=== PATIENT | female | born 1995 | race Caucasian/White ===

== ENCOUNTER 2016-04-26 12:45 | Emergency (ER) | payer OTHER ==
[2016-04-26 12:55] VITALS: BP 133/58
[2016-04-26] MEDS ORDERED: methylPREDNISolone SOD 40 MG* 1 ML VIAL IV ONE (12:56)
[2016-04-26] MEDS ORDERED: Ranitidine INJ(*) 25 MG/ML 2 ML VIAL IVPB ONE (12:59)
[2016-04-26] MEDS ORDERED: methylPREDNISolone 125 MG* 2 ML VIAL IV ONE (13:02)
[2016-04-26] MEDS ORDERED: Famotidine TAB* 20 MG PO ONE (13:13)
[2016-04-26] MEDS ORDERED: predniSONE TAB* 20 MG PO ONE (13:13)
--- NOTE | 2016-04-26 13:18 | ED ---
Allergic Reaction/Systemic - HPI Summary HPI Summary: 20F presents with anaphylaxis reaction after eating nuts this morning which she has a known reaction to. She says she felt her tongue swell and her throat became swollen. She took two Benadryl and her friend gave her an epipen. Symptoms resolved with the epipen. - History of Current Complaint Chief Complaint: EDAllergicReaction Time Seen by Provider: 04/26/16 12:55 Pain Intensity: 0 - Allergies/Home Medications Allergies/Adverse Reactions: Allergies Allergy/AdvReac Type Severity Reaction Status Date / Time No Known Allergies Allergy Verified 05/07/15 12:42 PMH/Surg Hx/FS Hx/Imm Hx Endocrine/Hematology History: Denies: Hx Diabetes Cardiovascular History: Denies: Hx Hypertension, Hx Pacemaker/ICD Respiratory History: Denies: Hx Asthma History: Denies: Hx Renal Disease Musculoskeletal History: Denies: Hx Osteoporosis Sensory History: Denies: Hx Hearing Aid Psychiatric History: Denies: Hx Panic Disorder - Surgical History Surgery Procedure, Year, and Place: T&A-LEFT FOOT SURGERY 10/2014 Infectious Disease History: No Infectious Disease History: Denies: Traveled Outside the [place] in Last 30 Days - Family History Known Family History: Negative: Cardiac Disease - Social History Alcohol Use: Occasionally Substance Use Type: Reports: None Smoking Status (MU): Never Smoked Tobacco Review of Systems Negative: Fever Positive: Sore Throat - resolved Negative: Chest Pain Positive: Shortness Of Breath - resolved All Other Systems Reviewed And Are Negative: Yes Physical Exam Triage Information Reviewed: Yes Vital Signs On Initial Exam: Initial Vitals Temp Pulse Resp BP Pulse Ox 98.2 F 101 19 133/58 100 04/26/16 12:50 04/26/16 12:50 04/26/16 12:50 04/26/16 12:50 04/26/16 12:50 Vital Signs Reviewed: Yes Appearance: Positive: Well-Appearing Skin: Positive: Warm, Dry Head/Face: Positive: Normal Head/Face Inspection Eyes: Positive: Normal, Conjunctiva Clear ENT: Positive: Normal ENT inspection, Pharynx normal, TMs normal Respiratory/Lung Sounds: Positive: Clear to Auscultation, Breath Sounds Present Cardiovascular: Positive: Normal, RRR - Dustin Coma Scale Coma Scale Total: 15 Diagnostics - Vital Signs Vital Signs Temp Pulse Resp BP Pulse Ox 04/26/16 12:50 98.2 F 101 19 133/58 100 - Laboratory Lab Statement: Any lab studies that have been ordered have been reviewed, and results considered in the medical decision making process. Allergic Reaction Course/Dx - Course Course Of Treatment: 20F presents with anaphlyatic reaction s/p eating some nuts. felt tongue and throat swelling up so took epipen and benadryl. no symptoms currently. discussed that would prefer to do medications via IV but patient refused so did oral prednisone and famotidine. patient states owuld like to sign out AMA. told of risks for repeat anaphlyaxis reaction as needs to be monitored. patient understands and would still like to sign out AMA. told to take benadryk every 6 hours and take prednisone once a day for 5 days. has epipen at home and told if symptoms return to use it and come back to ED. sent script for steriods to take for next 4 days. patient has no symptoms at time of signing out AMA. - Diagnoses Differential Diagnosis/HQI/PQRI: Positive: Anaphylaxis, Bronchospasm, Local Allergic Reaction Provider Diagnoses: Allergic reaction Discharge - Discharge Plan Condition: Stable Disposition: AGAINST MEDICAL ADVICE Prescriptions: predniSONE TAB* [Deltasone TAB*] 40 mg PO DAILY #4 tab Referrals: [facility] IGNACIA Amezcua [Primary Care Provider] -
== END 2016-04-26 13:23 | disposition left against medical advice (07) ==
LOC: ED 12:45
DX: T78.1XXA Other adverse food reactions, not elsewhere classified, initial encounter (principal); J02.9 Acute pharyngitis, unspecified; X58.XXXA Exposure to other specified factors, initial encounter
CPT/HCPCS: 96374; 99282; A9270-GY; J7512